=== PATIENT | male | born 1985 | race Caucasian/White ===

== ENCOUNTER 2019-12-16 14:16 | Outpatient (REF) | payer OTHER, SELFPAY | END 2019-12-16 14:17 | disposition home or self-care (01) | LOC: HO.BBR 14:16 | PROVIDERS: Visit Provider Internal Medicine | DX: E83.110 Hereditary hemochromatosis (principal) | CPT/HCPCS: 99195 ==

== ENCOUNTER 2020-04-13 14:34 | Outpatient (REF) | payer OTHER, SELFPAY | END 2020-04-13 14:35 | disposition home or self-care (01) | LOC: HO.BBR 14:34 | PROVIDERS: Visit Provider Internal Medicine | DX: Z13.89 Encounter for screening for other disorder (principal) ==

== ENCOUNTER 2020-06-12 09:17 | Outpatient (REF) | payer OTHER, SELFPAY | END 2020-06-12 09:18 | disposition home or self-care (01) | LOC: HO.BBR 09:17 | PROVIDERS: Visit Provider Internal Medicine | DX: Z13.89 Encounter for screening for other disorder (principal) ==

== ENCOUNTER 2020-08-10 14:35 | Outpatient (REF) | payer OTHER, SELFPAY | END 2020-08-10 14:36 | disposition home or self-care (01) | LOC: HO.BBR 14:35 | PROVIDERS: PCP Internal Medicine; Visit Provider Internal Medicine | DX: Z13.89 Encounter for screening for other disorder (principal) ==

== ENCOUNTER 2020-12-11 14:25 | Outpatient (REF) | payer OTHER, SELFPAY | END 2020-12-11 14:26 | disposition home or self-care (01) | LOC: HO.BBR 14:25 | PROVIDERS: Visit Provider Internal Medicine | DX: Z13.89 Encounter for screening for other disorder (principal) ==

== ENCOUNTER 2021-04-16 14:47 | Outpatient (REF) | payer OTHER, SELFPAY | END 2021-04-16 14:48 | disposition home or self-care (01) | LOC: HO.BBR 14:47 | PROVIDERS: PCP Internal Medicine; Visit Provider Internal Medicine | DX: Z13.89 Encounter for screening for other disorder (principal) ==

== ENCOUNTER 2021-07-24 14:28 | Outpatient (REF) | payer OTHER, SELFPAY | END 2021-07-24 14:29 | disposition home or self-care (01) | LOC: HO.BBR 14:28 | PROVIDERS: Visit Provider Internal Medicine | DX: Z13.89 Encounter for screening for other disorder (principal) ==

== ENCOUNTER 2021-12-10 14:25 | Outpatient (REF) | payer OTHER, SELFPAY | END 2021-12-10 14:26 | disposition home or self-care (01) | LOC: HO.BBR 14:25 | PROVIDERS: PCP Internal Medicine; Visit Provider Internal Medicine | DX: Z13.89 Encounter for screening for other disorder (principal) ==

== ENCOUNTER 2022-04-12 14:14 | Outpatient (REF) | payer OTHER, SELFPAY | END 2022-04-12 14:15 | disposition home or self-care (01) | LOC: HO.BBR 14:14 | PROVIDERS: Visit Provider Internal Medicine | DX: Z13.89 Encounter for screening for other disorder (principal) ==

== ENCOUNTER 2022-06-14 14:18 | Outpatient (REF) | payer OTHER, SELFPAY ==
[2022-06-14 19:10] LABS: Ferritin 252 ng/mL (20-250)
== END 2022-06-14 14:19 | disposition home or self-care (01) ==
LOC: HO.BBR 14:18
PROVIDERS: Visit Provider Internal Medicine Hematology & Oncology
DX: E83.110 Hereditary hemochromatosis (principal)
CPT/HCPCS: 36415; 82728

== ENCOUNTER 2022-06-28 14:22 | Outpatient (REF) | payer OTHER, SELFPAY ==
[2022-06-28 16:42] LABS: Ferritin 171 ng/mL (20-250)
== END 2022-06-28 14:23 | disposition home or self-care (01) ==
LOC: HO.BBR 14:22
PROVIDERS: PCP Internal Medicine; Visit Provider Internal Medicine Hematology & Oncology
DX: E83.110 Hereditary hemochromatosis (principal)
CPT/HCPCS: 36415; 82728

== ENCOUNTER 2022-07-12 14:15 | Outpatient (REF) | payer OTHER, SELFPAY ==
[2022-07-12 16:46] LABS: Ferritin 122 ng/mL (20-250)
== END 2022-07-12 14:16 | disposition home or self-care (01) ==
LOC: HO.BBR 14:15
PROVIDERS: Visit Provider Internal Medicine Hematology & Oncology
DX: E83.110 Hereditary hemochromatosis (principal)
CPT/HCPCS: 36415; 82728

== ENCOUNTER 2022-07-30 13:01 | Outpatient (REF) | payer OTHER, SELFPAY ==
[2022-07-30 14:19] LABS: Ferritin 76 ng/mL (20-250)
== END 2022-07-30 13:02 | disposition home or self-care (01) ==
LOC: HO.BBR 13:01
PROVIDERS: Visit Provider Internal Medicine Hematology & Oncology
DX: E83.110 Hereditary hemochromatosis (principal)
CPT/HCPCS: 36415; 82728

== ENCOUNTER 2022-08-23 14:06 | Outpatient (REF) | payer OTHER, SELFPAY | END 2022-08-23 14:07 | disposition home or self-care (01) | LOC: HO.BBR 14:06 | PROVIDERS: Visit Provider Internal Medicine Hematology & Oncology | DX: E83.110 Hereditary hemochromatosis (principal) | CPT/HCPCS: 36415; 82728 ==

== ENCOUNTER 2022-10-11 13:27 | Outpatient (REF) | payer OTHER, SELFPAY | END 2022-10-11 13:28 | disposition home or self-care (01) | LOC: HO.BBR 13:27 | PROVIDERS: Visit Provider Internal Medicine Hematology & Oncology | DX: Z13.89 Encounter for screening for other disorder (principal) ==

== ENCOUNTER 2022-12-16 14:57 | Outpatient (REF) | payer OTHER, SELFPAY | END 2022-12-16 14:58 | disposition home or self-care (01) | LOC: HO.BBR 14:57 | PROVIDERS: PCP Internal Medicine; Visit Provider Internal Medicine Hematology & Oncology | DX: Z13.89 Encounter for screening for other disorder (principal) ==

== ENCOUNTER 2023-01-24 14:16 | Outpatient (REF) | payer OTHER, SELFPAY | END 2023-01-24 14:17 | disposition home or self-care (01) | LOC: HO.BBR 14:16 | PROVIDERS: PCP Internal Medicine; Visit Provider Internal Medicine Hematology & Oncology | DX: Z13.89 Encounter for screening for other disorder (principal) ==

== ENCOUNTER 2023-02-21 13:59 | Outpatient (REF) | payer OTHER, SELFPAY | END 2023-02-21 14:00 | disposition home or self-care (01) | LOC: HO.BBR 13:59 | PROVIDERS: PCP Internal Medicine; Visit Provider Internal Medicine Hematology & Oncology | DX: Z13.89 Encounter for screening for other disorder (principal) ==

== ENCOUNTER 2023-03-21 14:19 | Outpatient (REF) | payer OTHER, SELFPAY | END 2023-03-21 14:20 | disposition home or self-care (01) | LOC: HO.BBR 14:19 | PROVIDERS: PCP Internal Medicine; Visit Provider Internal Medicine Hematology & Oncology | DX: Z13.89 Encounter for screening for other disorder (principal) ==

== ENCOUNTER 2023-05-27 14:15 | Outpatient (REF) | payer OTHER, SELFPAY ==
[2023-05-27 14:40] LABS: Hematocrit 42.8 % (42.0-52.0); Hemoglobin 14.9 g/dl (14.0-18.0)
[2023-05-27 16:29] LABS: Ferritin 18 ng/mL (20-250)
== END 2023-05-27 14:16 | disposition home or self-care (01) ==
LOC: HO.BBR 14:15
PROVIDERS: PCP Internal Medicine; Visit Provider Internal Medicine Hematology & Oncology
DX: E83.110 Hereditary hemochromatosis (principal)
CPT/HCPCS: 36415; 82728; 85014; 85018

== ENCOUNTER 2023-07-29 14:25 | Outpatient (REF) | payer OTHER, SELFPAY ==
[2023-07-29 14:44] LABS: Hematocrit 42.6 % (42.0-52.0); Hemoglobin 15.2 g/dl (14.0-18.0)
[2023-07-29 16:07] LABS: Ferritin 29 ng/mL (20-250)
== END 2023-07-29 14:26 | disposition home or self-care (01) ==
LOC: HO.BBR 14:25
PROVIDERS: PCP Internal Medicine; Visit Provider Internal Medicine Hematology & Oncology
DX: E83.110 Hereditary hemochromatosis (principal)
CPT/HCPCS: 36415; 82728; 85014; 85018

== ENCOUNTER 2023-10-29 15:01 | Outpatient (REF) | payer OTHER, SELFPAY | END 2023-10-29 15:02 | disposition home or self-care (01) | LOC: HO.BBR 15:01 | PROVIDERS: PCP Internal Medicine; Visit Provider Internal Medicine Hematology & Oncology | DX: Z13.89 Encounter for screening for other disorder (principal) ==

== ENCOUNTER 2024-01-28 14:27 | Outpatient (REF) | payer OTHER, SELFPAY | END 2024-01-28 14:28 | disposition home or self-care (01) | LOC: HO.BBR 14:27 | PROVIDERS: PCP Internal Medicine; Visit Provider Internal Medicine Hematology & Oncology | DX: Z13.89 Encounter for screening for other disorder (principal) ==

== ENCOUNTER 2024-04-27 14:20 | Outpatient (REF) | payer OTHER, SELFPAY | END 2024-04-27 14:21 | disposition home or self-care (01) | LOC: HO.BBR 14:20 | PROVIDERS: PCP Internal Medicine; Visit Provider Internal Medicine Hematology & Oncology | DX: Z13.89 Encounter for screening for other disorder (principal) ==

== ENCOUNTER 2024-07-28 14:26 | Outpatient (REF) | payer OTHER, SELFPAY | END 2024-07-28 14:27 | disposition home or self-care (01) | LOC: HO.BBR 14:26 | PROVIDERS: PCP Internal Medicine; Visit Provider Internal Medicine Hematology & Oncology | DX: Z13.89 Encounter for screening for other disorder (principal) ==

== ENCOUNTER 2024-11-01 14:16 | Outpatient (REF) | payer OTHER, SELFPAY | END 2024-11-01 14:17 | disposition home or self-care (01) | LOC: HO.BBR 14:16 | PROVIDERS: PCP Internal Medicine; Visit Provider Internal Medicine Hematology & Oncology | DX: Z13.89 Encounter for screening for other disorder (principal) ==